=== PATIENT | female | born 1945 | race Caucasian/White ===

== ENCOUNTER 2018-06-01 15:09 | Emergency (ER) | payer OTHER, BC ==
[~2018-06-01] VITALS: Ht 160 cm; Wt 56.7 kg
[~2018-06-01 15:09] MED LIST: HYDROCODONE-AP1 EAC6 PO; IRON18 M1 PO; IRON325 PO; MIRALAX17 GM PO; NAPROSYN500 MG PO; OMEPRAZOLE40 MG PO; PROTONIX40 M1 PO; ROBAXIN 750 MG750 M1 PO; VAGIFEM10 MCG VG; ZANTAC300 MG PO
[2018-06-01] MEDS ORDERED: ZOLOFT25 MG PO (15:24)
[2018-06-01] MEDS ORDERED: CLONAZEPAM 0.50.5 M1 PO (15:24)
[2018-06-01] MEDS ORDERED: AMITRIPTYLINE H25 M2 PO (15:24)
[2018-06-01 17:47] VITALS: BP 148/110
== END 2018-06-01 17:48 | disposition home or self-care (01) ==
LOC: M.ERS 15:09
DX: S80.02XA Contusion of left knee, initial encounter (principal); S80.01XA Contusion of right knee, initial encounter; M54.16 Radiculopathy, lumbar region; Z90.710 Acquired absence of both cervix and uterus; Z90.10 Acquired absence of unspecified breast and nipple; W01.0XXA Fall on same level from slipping, tripping and stumbling without subsequent striking against object, initial encounter; Y93.89 Activity, other specified; Y92.89 Other specified places as the place of occurrence of the external cause; Y99.8 Other external cause status

== ENCOUNTER → 2018-09-01 | Outpatient (CLI) | payer OTHER ==
[~2018-09-01] MED LIST changes: +AMITRIPTYLINE H25 M2 PO; +CLONAZEPAM 0.50.5 M1 PO; +ZOLOFT25 MG PO
== END ==
LOC: M.MRI 08:30
DX: M51.26 Other intervertebral disc displacement, lumbar region (principal); M47.26 Other spondylosis with radiculopathy, lumbar region; M48.062 Spinal stenosis, lumbar region with neurogenic claudication; M43.16 Spondylolisthesis, lumbar region

== ENCOUNTER 2019-06-29 13:10 | Emergency (ER) | payer OTHER ==
[~2019-06-29] VITALS: Ht 160 cm; Wt 59.0 kg
[2019-06-29] MEDS ORDERED: BACLOFEN 10MG T10 MG PO (13:29)
[2019-06-29] MEDS ORDERED: SERTRALINE HCL100 MG PO (13:29)
[2019-06-29] MEDS ORDERED: CLONAZEPAM 0.50.5 M1 PO (13:29)
[2019-06-29] MEDS ORDERED: NORCO 5-325 TA1 EAC1 PO (13:30)
[2019-06-29] MEDS ORDERED: TYLENOL WITH CO1 TA1 PO (14:26)
[2019-06-29 14:57] VITALS: BP 125/70
== END 2019-06-29 14:59 | disposition home or self-care (01) ==
LOC: M.ERS 13:10
DX: S62.397A Other fracture of fifth metacarpal bone, left hand, initial encounter for closed fracture (principal); S00.81XA Abrasion of other part of head, initial encounter; K21.9 Gastro-esophageal reflux disease without esophagitis; Z86.2 Personal history of diseases of the blood and blood-forming organs and certain disorders involving the immune mechanism; Z90.10 Acquired absence of unspecified breast and nipple; Z90.711 Acquired absence of uterus with remaining cervical stump; W01.0XXA Fall on same level from slipping, tripping and stumbling without subsequent striking against object, initial encounter; Y93.89 Activity, other specified; Y92.89 Other specified places as the place of occurrence of the external cause; Y99.8 Other external cause status